=== PATIENT | male | born 1995 | race Caucasian/White ===

== ENCOUNTER 2019-06-17 20:53 | Emergency (ER) | payer OTHER ==
[~2019-06-17] VITALS: Ht 177.8 cm; Wt 72.6 kg
[2019-06-17 21:16] VITALS: BP 132/87
--- NOTE | 2019-06-17 21:16 | NUR ---
PT AAOX4. AMBULATORY WITH STEDAY GAIT. C/O R 2ND DIGIT FINGER LAC WHILE CUTTING GARLIC. PT HAS RECIEVED HIS TEATNUS SHOT IN THE PAST 5 YEARS. VSS. NO ACUTE DISTRESS NOTED. EMT AT BEDSIDE FOR WOUND CARE. WILL COTNINUE TO MONITOR.
--- NOTE | 2019-06-17 22:01 | NUR ---
Patient discharged to home in stable condition. Written and verbal after care instructions given. Patient verbalizes understanding of instruction.ambulatory with a steady gait
== END 2019-06-17 22:02 | disposition home or self-care (01) ==
LOC: ER 20:56
DX: S61.210A Laceration without foreign body of right index finger without damage to nail, initial encounter (principal); W26.8XXA Contact with other sharp object(s), not elsewhere classified, initial encounter; Y93.89 Activity, other specified; Y92.89 Other specified places as the place of occurrence of the external cause; Y99.8 Other external cause status
CPT/HCPCS: 12001; 99282; A6403